=== PATIENT | male | born 1955 ===

== ENCOUNTER 2023-09-13 11:44 | Outpatient (AMB) | payer OTHER, SELFPAY ==
--- NOTE | 2023-09-13 11:46 | AM.OFFWIN_ITS ---
Intake Vital Signs 09/13/23 11:47 Height 5 ft 9 in Weight 221 lb BMI 32.6 BP 112/60 Blood Pressure Location Lt brachial Position Sitting Pulse 78 Pulse Source Pulse Oximeter Pulse Oximetry (%) 95 Oxygen Delivery Method Room Air Intake Visit Reasons: cold symptoms Intake Note: Patient is here today for cold symptoms. Symptoms are Stuffy nose, cough, no fever or chills or body aches. Home covid test was neg. Patient Tobacco Use Status: Current everyday Tobacco user Top Flavor Attendant Required: No Wood Coater: Not Required per policy Accompanied by: Self / Same As Patient Allergies No Known Allergies Allergy (Verified 09/13/23 12:02) Medication List - Last Reconciled 09/13/23 by Eneida Nguyễn, DOOR BUILDER- atorvastatin 40 mg PO DAILY levothyroxine (Synthroid) 175 mcg PO DAILY metoprolol succinate ER 50 mg PO DAILY Do you need a note to return to daycare/school/sports/work: No HPI HPI Comments History of Present Illness Details Here today with cold like sx Started 2 weeks ago. head congestion, chest congestion leaving on Saturday for business trip for the week Reports hx of PNA x 5 as a child. Not UTD on flu vaccine TO help at home - went to PCP Dr Hernandez was given tessalon and pred pack which he completed last week Seemed to help however sx continued, admits over the last 2 days feels pretty good Denies fever, chills, body aches, runny nose, sore throat. PFSH Social History Patient Tobacco Use Status: Current everyday Tobacco user Review of Systems Const All systems reviewed & are unremarkable except as noted in HPI and below Physical Exam Vital Signs: Last Vital Signs Pulse 78 09/13/23 11:47 BP 112/60 09/13/23 11:47 Pulse Ox 95 09/13/23 11:47 Oxygen Delivery Method Room Air 09/13/23 11:47 BMI result Body Mass Index 32.6 Const Other: Awake alert NAD Sclera and conjunctiva clear bilat TM intact and clear bilat MMM, pharynx WNL RRR LS CTAB Assessment & Plan Assessment & Plan (1) Viral respiratory illness: Code(s): J98.8 - Other specified respiratory disorders; B97.89 - Other viral agents as the cause of diseases classified elsewhere Plan: Offered and declined viral swab today. He reports that he is feeling pretty well. Asked for some natural remedies to help. I did provide him with a handout for this. Advised that if he were to develop worsening symptoms to include a fever or productive cough that he should seek additional care but otherwise supportive care only. This note is constructed using voice recognition software. While every effort has been made to ensure accuracy in diabetes clinical manager, still errors may have been included Sometimes, these errors may affect the content or meaning of the given sentence . Total time spent caring for the patient today was 30 minutes. This includes time spent before the visit reviewing the chart, time spent during the visit, and time spent after the visit on documentation Coding Level of Care Code Est Pt Level 4 (52441) Diagnoses Viral respiratory illness J98.8; B97.89
[2023-09-13 11:47] VITALS: BP 112/60; PULSE 78; O2SAT 95; BMI 32.6
== END 2023-09-13 13:53 | disposition home or self-care (01) ==
PROVIDERS: Visit Provider Nurse Practitioner Family
DX: J98.8 Other specified respiratory disorders (principal); B97.89 Other viral agents as the cause of diseases classified elsewhere
CPT/HCPCS: 99214